=== PATIENT | male | born 1995 | race African-American/Black ===

== ENCOUNTER 2017-08-24 07:27 | Emergency (ER) | payer SELFPAY ==
[2017-08-24] MEDS ORDERED: Ondansetron HCl/PF 4 MG/2 ML Vial ONE (08:28)
[2017-08-24] MEDS ORDERED: Ibuprofen 800 MG TAB ONE (08:29)
== END 2017-08-24 09:58 | disposition home or self-care (01) ==
LOC: ERS 07:27
DX: R11.2 Nausea with vomiting, unspecified (principal); R50.9 Fever, unspecified; R19.7 Diarrhea, unspecified; J45.909 Unspecified asthma, uncomplicated
CPT/HCPCS: 96361; 96374; J2405

== ENCOUNTER 2018-09-17 13:16 | Emergency (ER) | payer SELFPAY ==
[2018-09-17] MEDS ORDERED: Acetaminophen 500 MG TAB ONE (14:19)
--- NOTE | 2018-09-17 14:43 | RAD ---
RADIOGRAPH CHEST 2 VIEWS: HISTORY: 23-year-old male with cough. FINDINGS: The lungs are clear. The cardiomediastinal silhouette and hilar shadows are normal. There is no pleur al effusion. The osseous structures appear normal. There is no pneumothorax. IMPRESSION: Normal. jn [] POS: [facility]
[2018-09-17] MEDS ORDERED: Ibuprofen 800 MG TAB ONE (15:42)
[2018-09-17] MEDS ORDERED: Dexamethasone 10 MG/ML VIAL ONE (15:42)
[2018-09-17] MEDS ORDERED: Ibuprofen 200 MG TAB ONE (15:47)
== END 2018-09-17 15:54 | disposition home or self-care (01) ==
LOC: ERS 13:16
DX: J10.1 Influenza due to other identified influenza virus with other respiratory manifestations (principal); J45.909 Unspecified asthma, uncomplicated
CPT/HCPCS: 71046; 87804; 94640; J1100; J7620

== ENCOUNTER 2019-06-20 19:41 | Emergency (ER) | payer SELFPAY | END 2019-06-20 21:27 | disposition home or self-care (01) | LOC: ERS 19:41 | DX: S50.861A Insect bite (nonvenomous) of right forearm, initial encounter (principal); J45.909 Unspecified asthma, uncomplicated; Z79.51 Long term (current) use of inhaled steroids; W57.XXXA Bitten or stung by nonvenomous insect and other nonvenomous arthropods, initial encounter | CPT/HCPCS: 99281 ==

== ENCOUNTER 2019-07-19 17:14 | Emergency (ER) | payer SELFPAY ==
[2019-07-19] MEDS ORDERED: Bicillin LA 2.4 MILL.UNITS/4 ML SYRINGE ONE (18:06)
== END 2019-07-19 18:55 | disposition home or self-care (01) ==
LOC: ERS 17:14
DX: Z20.2 Contact with and (suspected) exposure to infections with a predominantly sexual mode of transmission (principal); J45.909 Unspecified asthma, uncomplicated
CPT/HCPCS: 96372; 99283; J0561

== ENCOUNTER 2022-04-07 22:54 | Emergency (ER) | payer SELFPAY ==
[2022-04-08] MEDS ORDERED: HYDROcodone/Acetaminophen 5/325 mg Tablet ONE (01:05)
[2022-04-08] MEDS ORDERED: Boostrix 0.5 ML (Tdap) VIAL (>/=7 yrs of age) ONE (01:05)
== END 2022-04-08 02:37 | disposition home or self-care (01) ==
LOC: ERS 22:54
DX: S90.221A Contusion of right lesser toe(s) with damage to nail, initial encounter (principal); Z23 Encounter for immunization; W20.8XXA Other cause of strike by thrown, projected or falling object, initial encounter
CPT/HCPCS: 90471; 90715